=== PATIENT | male | born 1995 | race Caucasian/White ===

== ENCOUNTER → 2016-05-07 | Outpatient (CLI) | payer OTHER | LOC: FIMAGING 17:32 | PROVIDERS: ATTEND Family Medicine | DX: M25.511 Pain in right shoulder (principal) ==

== ENCOUNTER 2016-07-07 06:41 | Emergency (ER) | payer OTHER ==
[2016-07-07 06:46] VITALS: RESP 16
[2016-07-07] MEDS ORDERED: HYDROmorphONE/DILAUDID 1 MG/ML SYR ONE (07:07)
[2016-07-07] MEDS ORDERED: fentaNYL 100 MCG/2 ML INJ ONE (07:08)
[2016-07-07] MEDS ORDERED: fentaNYL 100 MCG/2 ML INJ IVP ONE ×3 (07:09→07:40)
--- NOTE | 2016-07-07 07:46 | EDPHY ---
H & P Time Seen by Provider: 07/07/16 07:19 HPI/ROS: CHIEF COMPLAINT: Shoulder dislocation HISTORY OF PRESENT ILLNESS: Patient is a 20-year-old male who presents emergency department with right shoulder dislocation. He has had numerous shoulder dislocations in the past. 6 months ago he had surgery on his right shoulder to prevent dislocation. The patient was sleeping and dislocated shoulder. No recent trauma. He has no numbness or tingling. No other complaints. REVIEW OF SYSTEMS: My complete review of systems is negative except as mentioned in the HPI. Past Medical/Surgical History: Includes shoulder dislocation and shoulder surgery Smoking Status: Never smoked Physical Exam: Vitals noted GENERAL: mild acute distress, alert. HEENT: Eyes normal to inspection, normal pharynx, no signs of dehydration. NECK: No thyromegaly, normal RESPIRATORY: Clear to auscultation bilaterally, no rales, rhonchi or wheezing. CVS: Regular rate and rhythm, no rubs, murmurs, or gallops. ABDOMEN: Soft, nontender. BACK: Normal to inspection, no CVA tenderness. SKIN: Normal color, no rash, warm, dry. No pallor. EXTREMITIES: Patient's lower extremities appear normal. Patient is muscular. Patient's right shoulder appears to be dislocated by exam. There is indent inferior to the clavicle laterally. Neurovascularly intact distally. NEURO/PSYCH: Alert and oriented x3, normal mood and affect, normal motor sensory exam. No obvious cranial nerve deficit. Constitutional: Initial Vital Signs Temperature (C) 36.7 C 07/07/16 06:44 Heart Rate 61 07/07/16 06:44 Respiratory Rate 16 07/07/16 06:44 Blood Pressure 124/70 H 07/07/16 06:44 O2 Sat (%) 97 07/07/16 06:44 O2 Delivery Mode [Post Nasal Cannula Procedure 4th] O2 Delivery Mode [Post Nasal Cannula Procedure 3rd] O2 Delivery Mode [Post Non-Rebreather Mask Procedure 2nd] O2 Delivery Mode [Post Non-Rebreather Mask Procedure 1st] O2 Delivery Mode [Procedural Non-Rebreather Mask 1st] O2 Delivery Mode Room Air O2 (L/minute) [Post Procedure 6 4th] O2 (L/minute) [Post Procedure 6 3rd] O2 (L/minute) [Post Procedure 15 2nd] O2 (L/minute) [Procedural 1st] 15 O2 (L/minute) 15 Allergies/Adverse Reactions: No Known Allergies Allergy (Unverified 07/07/16 06:46) Home Medications: Medication Instructions Recorded oxyCODONE/APAP 325 [Percocet 1 - 2 tab PO Q4PRN PRN #11 tab 07/07/16 5/325 (*)] Medical Decision Making - Diagnostics Imaging Results: Imaging Impressions Shoulder X-Ray 07/07/16 06:59 Impression: Glenohumeral joint dislocation. Shoulder X-Ray 07/07/16 08:08 Impression: Status post closed reduction with anatomic realignment of the previously-dislocated glenohumeral joint, compared to 7:06 AM. Procedures: Procedure right shoulder reduction Indication: Shoulder dislocation Initially attempted to reduce the shoulder using Ayala technique. This was unsuccessful. This was done without conscious sedation. Procedure: Procedural sedation. A pre-sedation evaluation was completed on the patient prior to the procedure. Patient is an appropriate candidate for procedural sedation. The patient's vital signs and mental status are appropriate. The risks, benefits and alternatives of the sedation were discussed with the patient. The patient is ASA classification E. The patient's Mallampati airway score was 3 and the patient did meet the 3-3-2 airway measurements. A time out was completed. The patient was sedated with propofol 100 mg mg IV. After brief. The patient still was talking and conversant. He was given propofol 50 mg IV. The patient was monitored with continuous pulse oximetry, mounter and end tidal CO2. There were no complications and no significant hypoxemia. I performed the conscious sedation and procedure. I remained at the bedside for the sedation. The total time I spent in the procedural sedation was 15 minutes. The patient was examined after the procedural sedation and has returned to their pre- sedation baseline with normal vital signs and a normal examination. Procedure: Dislocation reduction. The right shoulder was reduced in the usual fashion using traction without complications. Post reduction the patient's neurovascular exam is normal. Post reduction x-ray demonstrates reduction of the joint to the anatomic position. The procedure was performed by myself. ED Course/Re-evaluation: In the emergency department I discussed possible etiologies with the patient. X -ray was ordered. Patient was given fentanyl 100 mcg IV X-ray right shoulder: Please refer the dictated report. The patient has an anterior dislocation. There appears to be Hill-Sachs fracture. This is old. I discussed the results with the patient. The patient was given repeat dose of fentanyl 100 mcg IV. I attempted to reduce the patient's shoulder using Ayala technique. This was unsuccessful. I discussed the plan for conscious sedation. Patient states he last ate last night. He has had previous conscious sedation to relocate his shoulder in the past. He has had no adverse reactions to sedation. Patient was given propofol and his shoulder was reduced using traction. He tolerated the procedure well. He had no episodes of hypotension or desaturation. Post reduction film was ordered. Right shoulder x-ray: Shoulder is reduced. There is no new fracture. I discussed the result with the patient. I rechecked on numerous occasions. He did well in his recovery. 1843: The patient is awake and alert. He has recovered from his conscious sedation. He ambulates without difficulty. On recheck he is neurovascularly intact distally. He is able to range his right shoulder. He is given warnings prior to leaving. He will follow up with Dr. Barrow. Differential Diagnosis: My differential includes but is not limited to fracture, dislocation, contusion , sprain - Data Points Medications Given: Discontinued Medications Fentanyl (Sublimaze) 50 mcg IVP EDNOW ONE Stop: 07/07/16 07:10 Last Admin: 07/07/16 07:14 Dose: 50 mcg Fentanyl (Sublimaze) 50 mcg IVP EDNOW ONE Stop: 07/07/16 07:15 Last Admin: 07/07/16 07:15 Dose: 50 mcg Fentanyl (Sublimaze) 100 mcg IVP EDNOW ONE Stop: 07/07/16 07:41 Last Admin: 07/07/16 07:35 Dose: 100 mcg Propofol (Diprivan) 150 mg IVP EDNOW ONE Stop: 07/07/16 08:17 Last Admin: 07/07/16 08:17 Dose: 150 mg Departure - Departure Disposition: Home, Routine, Self-Care Clinical Impression: Dislocation of right shoulder joint Qualifiers: Encounter type: initial encounter Qualified Code(s): S43.004A - Unspecified dislocation of right shoulder joint, initial encounter Condition: Good Instructions: Shoulder Dislocation (ED) Referrals: OLLIE DOMINGUEZ [Primary Care Provider] - As per Instructions Trevor Barrow MD [Medical Doctor] - 5-7 days, call for appt. Prescriptions: oxyCODONE/APAP 5/325 [Percocet 5/325 (*)] 1 - 2 tab PO Q4PRN PRN #11 tab PRN Reason: For Moderate To Severe Pain
[2016-07-07] MEDS ORDERED: PROPOFOL 200 MG/20 ML VIAL ONE (08:01)
[2016-07-07] MEDS ORDERED: PROPOFOL 200 MG/20 ML VIAL IVP ONE (08:16)
[2016-07-07 08:35] VITALS: TEMP 97.7
[2016-07-07 09:05] VITALS: BP 112/77; PULSE 60; O2SAT 98
== END 2016-07-07 09:00 | disposition home or self-care (01) ==
PROC: 0RSJXZZ Reposition Right Shoulder Joint, External Approach (ICD-10-PCS; principal; 2016-07-07)
DX: M24.411 Recurrent dislocation, right shoulder (principal)
CPT/HCPCS: J1170; J2704; J3010